=== PATIENT | male | born 1960 | race Caucasian/White ===

== ENCOUNTER 2019-11-30 15:25 | Emergency (ER) | payer SELFPAY ==
[2019-11-30 15:32] VITALS: TEMP 98.4; BMI 26.6
[2019-11-30] MEDS ORDERED: SODIUM CHLORIDE 0.9% 500 ML INFUS.BAG IV ONE (15:58)
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
[2019-11-30 17:19] VITALS: BP 164/76; PULSE 85
[2019-11-30 17:31] LABS: BASO % 0.5 % (0-2.0); EOS % 0.4 % (0-4.5); HEMATOCRIT 34.2 % (35.4-49); HEMOGLOBIN 11.5 GM/dL (11.7-16.9); LYMPH % 17.7 % (8-40); MCH 32.5 pg (25.7-33.7); MCHC 33.6 g/dl (32.0-35.9); MEAN CELL VOLUME 96.5 fl (80-96); MEAN PLT VOLUME 8.2 fl (7.5-11.1); MONO % 16.7 % (3.8-10.2); NEUT % 64.7 % (42.8-82.8); PLATELET COUNT 177 K/MM3 (134-434); RBC 3.54 M/mm3 (4.00-5.60); RDW 15.6 % (11.9-15.9); WHITE BLOOD COUNT 6.4 K/mm3 (4.0-10.0)
[2019-11-30 18:04] LABS: ALBUMIN 3.5 g/dl (3.4-5.0); BILIRUBIN,TOTAL 0.9 mg/dL (0.2-1); BLOOD UREA NITROGEN 9.9 mg/dL (7-18); CALCIUM 8.5 mg/dL (8.5-10.1); CREATININE 0.8 mg/dL (0.55-1.3); POTASSIUM 3.8 mmol/L (3.5-5.1); TOT PROT 7.7 g/dl (6.4-8.2)
[2019-11-30 20:44] LABS: INR 1.11 (0.83-1.09); PROTHROMBIN TIME (PATIENT) 13.1 SEC (9.7-13.0)
[2019-11-30 20:47] LABS: ACTIVATED PTT 26.3 SECONDS (25.2-36.5)
== END 2019-11-30 18:00 | disposition short-term general hospital (02) ==
LOC: JER 15:25
DX: F10.10 Alcohol abuse, uncomplicated (principal); S00.83XA Contusion of other part of head, initial encounter; S12.100A Unspecified displaced fracture of second cervical vertebra, initial encounter for closed fracture
CPT/HCPCS: 36415; 70450-TC; 70486-TC; 72125-TC; 80053; 85025; 85610; 85730; 86850; 86900; 86901; 99285-25